=== PATIENT | female | born 1990 | race Caucasian/White ===

== ENCOUNTER 2017-06-06 12:09 | Emergency (ER) | payer OTHER ==
[~2017-06-06] VITALS: Ht 149.9 cm; Wt 68.0 kg
[2017-06-06] MEDS ORDERED: KETOROLAC TROMETHAMINE 60 MG/2 ML VIAL IM ONE (13:15)
[2017-06-06] MEDS ORDERED: CLINDAMYCIN PHOS 600 MG/ 4 ML VIAL IM ONE (13:15)
== END 2017-06-06 13:30 | disposition home or self-care (01) ==
LOC: FSED 12:09
DX: K61.1 Rectal abscess (principal); J45.909 Unspecified asthma, uncomplicated; F17.210 Nicotine dependence, cigarettes, uncomplicated
CPT/HCPCS: 10060; 99283; J1885